=== PATIENT | female | born 1990 | race Caucasian/White ===

== ENCOUNTER → 2021-12-24 | Outpatient (CLI) | payer SELFPAY | END | disposition home or self-care (01) | LOC: LAB SHORT 15:02 | PROVIDERS: Nurse Practitioner Family | DX: Z12.72 Encounter for screening for malignant neoplasm of vagina (principal); Z87.42 Personal history of other diseases of the female genital tract | CPT/HCPCS: G0123 ==

== ENCOUNTER → 2022-09-18 | Outpatient (CLI) | payer BC | END | disposition home or self-care (01) | LOC: LAB SHORT 15:05 | DX: L72.11 Pilar cyst (principal) | CPT/HCPCS: 88304 ==

== ENCOUNTER → 2022-12-09 | Outpatient (CLI) | payer BC | END | disposition home or self-care (01) | LOC: LAB 16:33 → LAB SHORT 16:33 | DX: Z34.03 Encounter for supervision of normal first pregnancy, third trimester (principal) | CPT/HCPCS: 87081; 87150 ==

== ENCOUNTER 2022-12-25 15:45 | Inpatient (IN) | payer BC ==
[~2022-12-25] VITALS: Ht 172.7 cm; Wt 73.1 kg
[2022-12-25] MEDS ORDERED: PRENATAL TABLE1 EAC2 PO (17:09)
[2022-12-25] MEDS ORDERED: FAMO10 (17:10)
[2022-12-25 17:28] LABS: BASOPHILS ABSOLUTE AUTO 0.03 K/mm3 (0.00-0.23); BASOPHILS PERCENT AUTO 0 % (0-2); EOSINOPHILS ABSOLUTE AUTO 0.05 K/mm3 (0.00-0.68); EOSINOPHILS PERCENT AUTO 1 % (0-6); Hematocrit 37.4 % (33.0-51.0); IMMATURE GRAN ABSOLUTE AUTO 0.03 K/mm3 (0.00-0.10); IMMATURE GRAN PERCENT AUTO 0 % (0-1); LYMPHOCYTES ABSOLUTE AUTO 2.62 K/mm3 (0.84-5.20); LYMPHOCYTES PERCENT AUTO 24 % (21-46); MONOCYTES ABSOLUTE AUTO 0.75 K/mm3 (0.16-1.47); MONOCYTES PERCENT AUTO 7 % (4-13); Mean Corpuscular HGB 33.2 pg (26.0-34.0); Mean Corpuscular HGB Conc 34.8 g/dL (31.5-36.5); Mean Corpuscular Volume 96 fL (80-100); Mean Platelet Volume 10.5 fL (9.1-12.4); NEUTROPHILS ABSOLUTE AUTO 7.43 K/mm3 (1.96-9.15); NEUTROPHILS PERCENT AUTO 68 % (41-73); Platelet Count 214 K/mm3 (150-400); Red Blood Cell Count 3.91 M/mm3 (3.80-5.20); White Blood Cell Count 10.91 K/mm3 (4.00-11.30)
[2022-12-25 17:54] LABS: Albumin, Blood 2.8 g/dL (3.4-5.0); Albumin/Globulin Ratio 0.7 (0.8-1.8); Bilirubin, Total 0.4 mg/dL (0.1-1.0); Bun/Creatinine Ratio 15.2 (12.0-20.0); Calcium, Blood 8.8 mg/dL (8.5-10.1); Creatinine, Blood 0.72 mg/dL (0.40-1.00); Globulin, Blood 3.8 g/dL (2.2-4.0); Potassium, Blood 3.8 mmol/L (3.5-5.5); Total Protein, Blood 6.6 g/dL (6.4-8.2)
[2022-12-25 19:00] LABS: Creatinine, Urine Random 73.3 mg/dL (27.00-270.00); Protein, Urine Random 11.8 mg/dL (0.0-11.9); Protein/Creat Ratio, Ur Random 0.2
--- NOTE | 2022-12-25 21:06 | NUR ---
DISCHARGE SUMMARY: PT AND WALKED OUT OF UNIT. DECLINES ANY QUESTIONS OR CONCERNS AT THIS TIME. EDUCATED ON SIGNS AND SYMPTOMS OF INCREASED BLOOD PRESSURES. PT STATES SHE UDNERSTANDS SIGNS AND SYMPTOMS. AWARE OF PLANNED NST AND FOLLOW UP WITH DR NOLAN ON Friday12/27/22 WITH OFFICE TO CALL TOMORROW 12/26/22 TO SCHEDULE. ENCOURAGED TO CALL PROVIDER OR [facility] WITH ANY QUESTIONS OR CONCERNS.
== END 2022-12-25 21:15 | disposition home or self-care (01) | DRG 833 ==
LOC: BC 15:45 → OBS 15:45 → BC 16:36
PROVIDERS: Advanced Practice Midwife; ADMIT Obstetrics & Gynecology
DX: O47.1 False labor at or after 37 completed weeks of gestation (principal); O99.891 Other specified diseases and conditions complicating pregnancy; N89.8 Other specified noninflammatory disorders of vagina; Z3A.39 39 weeks gestation of pregnancy
CPT/HCPCS: 36415; 59025; 80053; 81003; 82570; 84156; 85025; 86850; 86900; 86901; A9270; J2210; J2590; J7120

== ENCOUNTER 2022-12-26 02:02 | Inpatient (IN) | payer BC ==
[~2022-12-26] VITALS: Ht 172.7 cm; Wt 72.0 kg
[~2022-12-26 02:02] MED LIST: FAMO10; PRENATAL TABLE1 EAC2 PO
--- NOTE | 2022-12-26 09:13 | NUR ---
REPORT RECEIVED FROM KILEY RN AT 0715 TO ASSUME CARE. PT OUTPT STATUS NEED TO BE CHANGED TO 23 HOUR OBS OR ADMIT. PROVIDER HAS BEEN NOTIFIED OF BP UPDATES AND NOTIFIED PT IS NO LONGER FEELING UC'S. PROVIDER CONCERNED DUE TO PT BEING ON THE BORDER OF QUALIFYING FOR GESTATIONAL HYPERTENSION. PROVIDER CALLED PT TO SPEAK TO HER REGARDING AUGMENTATION/INDUCTIONS VERSUS GOING HOME AND DOING A NST IN OFFICE TOMORROW. PROVIDER WILL COME IN AT [phone] TO MAKE FINAL DECISION. T/O TO NOT ADMIT PT AT THIS TIME FROM DR. NOLAN.
[2022-12-26 11:01] LABS: BASOPHILS ABSOLUTE AUTO 0.03 K/mm3 (0.00-0.23); BASOPHILS PERCENT AUTO 0 % (0-2); EOSINOPHILS ABSOLUTE AUTO 0.02 K/mm3 (0.00-0.68); EOSINOPHILS PERCENT AUTO 0 % (0-6); Hemoglobin 13.3 g/dL (11.5-16.0); IMMATURE GRAN ABSOLUTE AUTO 0.03 K/mm3 (0.00-0.10); IMMATURE GRAN PERCENT AUTO 0 % (0-1); LYMPHOCYTES ABSOLUTE AUTO 2.19 K/mm3 (0.84-5.20); LYMPHOCYTES PERCENT AUTO 21 % (21-46); MONOCYTES ABSOLUTE AUTO 0.61 K/mm3 (0.16-1.47); MONOCYTES PERCENT AUTO 6 % (4-13); Mean Corpuscular HGB 33.7 pg (26.0-34.0); Mean Corpuscular Volume 96 fL (80-100); Mean Platelet Volume 10.2 fL (9.1-12.4); NEUTROPHILS ABSOLUTE AUTO 7.48 K/mm3 (1.96-9.15); NEUTROPHILS PERCENT AUTO 72 % (41-73); Platelet Count 220 K/mm3 (150-400); RDW Coefficient Variation 13.1 % (11.7-14.2); RDW Standard Deviation 45.7 fL (35.1-46.3); Red Blood Cell Count 3.95 M/mm3 (3.80-5.20); White Blood Cell Count 10.36 K/mm3 (4.00-11.30)
[2022-12-26 16:30] LABS: Protein, Urine Random 9.3 mg/dL (0.0-11.9)
[2022-12-26 16:35] LABS: Creatinine, Urine Random 62.6 mg/dL (27.00-270.00); Protein/Creat Ratio, Ur Random 0.1
[2022-12-26 16:35] LABS: Albumin, Blood 2.9 g/dL (3.4-5.0); Albumin/Globulin Ratio 0.7 (0.8-1.8); Bilirubin, Total 0.5 mg/dL (0.1-1.0); Bun/Creatinine Ratio 13.4 (12.0-20.0); Calcium, Blood 8.6 mg/dL (8.5-10.1); Creatinine, Blood 0.75 mg/dL (0.40-1.00); Globulin, Blood 3.9 g/dL (2.2-4.0); Potassium, Blood 3.7 mmol/L (3.5-5.5); Total Protein, Blood 6.8 g/dL (6.4-8.2)
--- NOTE | 2022-12-27 08:22 | NUR ---
UP TO BATHROOM, UN ABLE TO VOID AT THIS TIME.
--- NOTE | 2022-12-27 20:20 | NUR ---
Patient asked for pain meds. notified nurse. no other needs at this time.
--- NOTE | 2022-12-28 10:22 | NUR ---
DISCHARGE INSTRUCTIONS, WRITTEN AND VERBAL, GIVEN TO PT AND . ANSWERED ALL QUESTIONS AND CONCERNS. FOLLOW UP APPOINTMENT SCHEDULED. IV DISCONTINUED. ALL PERSONAL BELONGINGS RETURNED. PT IS DISCHARGED HOME, DRIVEN BY .
== END 2022-12-28 11:30 | disposition home or self-care (01) | DRG 807 ==
LOC: BC 02:02 → OBS 02:02 → BC 10:27
PROVIDERS: ADMIT Obstetrics & Gynecology
PROC: 10E0XZZ Delivery of Products of Conception, External Approach (ICD-10-PCS; principal; 2022-12-27)
PROC: 0KQM0ZZ Repair Perineum Muscle, Open Approach (ICD-10-PCS; 2022-12-27)
PROC: 3E0R3BZ Introduction of Anesthetic Agent into Spinal Canal, Percutaneous Approach (ICD-10-PCS; 2022-12-27)
PROC: 00HU33Z Insertion of Infusion Device into Spinal Canal, Percutaneous Approach (ICD-10-PCS; 2022-12-27)
PROC: 10907ZC Drainage of Amniotic Fluid, Therapeutic from Products of Conception, Via Natural or Artificial Opening (ICD-10-PCS; 2022-12-27)
DX: O13.4 Gestational [pregnancy-induced] hypertension without significant proteinuria, complicating childbirth (principal); Z37.0 Single live birth; O76 Abnormality in fetal heart rate and rhythm complicating labor and delivery; O99.892 Other specified diseases and conditions complicating childbirth; R12 Heartburn; Z3A.39 39 weeks gestation of pregnancy; O70.1 Second degree perineal laceration during delivery; Z90.49 Acquired absence of other specified parts of digestive tract; Z98.890 Other specified postprocedural states; Z88.2 Allergy status to sulfonamides; Z88.8 Allergy status to other drugs, medicaments and biological substances; Z79.899 Other long term (current) drug therapy
CPT/HCPCS: 36415; 51702; 59025; 80053; 82570; 84156; 85025; 86850; 86900; 86901; A9270; J1885; J2270; J2550; J2590; J7120

== ENCOUNTER → 2023-02-12 | Outpatient (CLI) | payer BC ==
[2023-02-14 15:09] LABS: HPV 16 Negative (Negative); HPV 18 Negative (Negative); HPV OTHER HR TYPES Negative (Negative)
== END | disposition home or self-care (01) ==
LOC: LAB 11:29 → LAB SHORT 11:29
PROVIDERS: Obstetrics & Gynecology
DX: Z39.0 Encounter for care and examination of mother immediately after delivery (principal)
CPT/HCPCS: 87624; G0145

== ENCOUNTER → 2025-03-09 | Outpatient (CLI) | payer BC | END | disposition home or self-care (01) | LOC: LAB 16:08 → LAB SHORT 16:08 | DX: Z34.80 Encounter for supervision of other normal pregnancy, unspecified trimester (principal) | CPT/HCPCS: 87081; 87150 ==

== ENCOUNTER 2025-04-07 18:47 | Inpatient (IN) | payer BC ==
[~2025-04-07] VITALS: Ht 172.7 cm; Wt 72.7 kg
[2025-04-07] MEDS ORDERED: FentaNYL 2mcg/ml-Bup 0.1% Epd 250 ML EPI PRN (19:10)
[2025-04-07] MEDS ORDERED: Carboprost Tromethamine 250 MCG/ML 1ML Amp IM PRN (19:10)
[2025-04-07] MEDS ORDERED: Methylergonovine Maleate 0.2MG / ML 1ML Amp IM PRN (19:10)
[2025-04-07] MEDS ORDERED: Tranexamic Acid 100 ML IV SCH (19:10)
[2025-04-07] MEDS ORDERED: ePHEDrine Sulfate 50 MG/ML 1ML Injection XX PRN (19:10)
[2025-04-07] MEDS ORDERED: OXYTOCIN/RINGER'S LACTATE 500 ML IV PRN (19:10)
[2025-04-07] MEDS ORDERED: Oxytocin 10 Unit / ML Vial IM PRN (19:10)
[2025-04-07] MEDS ORDERED: OXYTOCIN/RINGER'S LACTATE 500 ML IV SCH ×3 (19:10→22:55)
[2025-04-07] MEDS ORDERED: Ondansetron HCl 2 MG / ML 2ML Vial IV PRN (19:20)
[2025-04-07 19:24] VITALS: BP 137/86
[2025-04-07] MEDS ORDERED: FentaNYL Citrate 50 MCG/ML 2 ML Injection IV PRN (19:25)
[2025-04-07 20:04] LABS: BASOPHILS ABSOLUTE AUTO 0.04 K/mm3 (0.00-0.23); BASOPHILS PERCENT AUTO 0 % (0-2); EOSINOPHILS ABSOLUTE AUTO 0.06 K/mm3 (0.00-0.68); EOSINOPHILS PERCENT AUTO 1 % (0-6); Hematocrit 34.3 % (33.0-51.0); Hemoglobin 11.9 g/dL (11.5-16.0); IMMATURE GRAN ABSOLUTE AUTO 0.03 K/mm3 (0.00-0.10); IMMATURE GRAN PERCENT AUTO 0 % (0-1); LYMPHOCYTES ABSOLUTE AUTO 3.16 K/mm3 (0.84-5.20); LYMPHOCYTES PERCENT AUTO 31 % (21-46); MONOCYTES ABSOLUTE AUTO 0.70 K/mm3 (0.16-1.47); MONOCYTES PERCENT AUTO 7 % (4-13); Mean Corpuscular HGB Conc 34.7 g/dL (31.5-36.5); Mean Corpuscular Volume 95 fL (80-100); NEUTROPHILS ABSOLUTE AUTO 6.31 K/mm3 (1.96-9.15); NEUTROPHILS PERCENT AUTO 61 % (41-73); NRBC ABSOLUTE 0.00 K/mm3 (0.00-0.02); NRBC Auto 0.0 /100 WBC (0.0-0.2); Platelet Count 216 K/mm3 (150-400); RDW Coefficient Variation 12.6 % (11.7-14.2); RDW Standard Deviation 43.4 fL (35.1-46.3)
[2025-04-07 20:20] LABS: Alanine Aminotransfer (ALT/SGP 16.0 U/L (12-78); Albumin, Blood 2.9 g/dL (3.4-5.0); Albumin/Globulin Ratio 0.8 (0.8-1.8); Anion Gap 10.0 mmol/L (3-11); Aspartate Aminotrans (AST/SGOT 17.0 U/L (12-37); Bilirubin, Total 0.4 mg/dL (0.1-1.0); Blood Urea Nitrogen 8.0 mg/dL (8-24); CO2, Blood 22.0 mmol/L (21-32); Calcium, Blood 8.3 mg/dL (8.5-10.1); Chloride, Blood 108.0 mmol/L (98-108); Creatinine, Blood 0.72 mg/dL (0.40-1.00); Globulin, Blood 3.8 g/dL (2.2-4.0); Glucose, Blood 83.0 mg/dL (70-99); Potassium, Blood 3.8 mmol/L (3.5-5.5); Sodium, Blood 136.0 mmol/L (136-145); Total Protein, Blood 6.7 g/dL (6.4-8.2)
[2025-04-07 21:02] VITALS: BP 130/80
[2025-04-07 22:29] VITALS: BP 131/78
[2025-04-08] VITALS (38 sets, daily range): BP systolic 120–203; BP diastolic 58–94
[2025-04-08] MEDS ORDERED: OXYTOCIN/RINGER'S LACTATE 500 ML IV SCH ×2 (05:20→20:15)
[2025-04-08 19:27] LABS: PCO2 Cord - Venous 50.9 mmHg (40-50); PO2 Cord - Venous 22.6 mmHg (28-32); pH Umbilical Cord - Venous 7.32 (7.26-7.35)
[2025-04-08] MEDS ORDERED: Ketorolac Tromethamine 30mg Vial IV PRN (20:10)
[2025-04-08] MEDS ORDERED: Carboprost Tromethamine 250 MCG/ML 1ML Amp IM PRN (20:10)
[2025-04-08] MEDS ORDERED: Witch Hazel/Glycerin PADS TOP PRN (20:10)
[2025-04-08] MEDS ORDERED: Benzocaine Topical Anesthetic Spray 60GM TOP PRN (20:15)
[2025-04-09 04:47] VITALS: BP 143/73
[2025-04-09 05:03] VITALS: BP 131/68
[2025-04-09 08:00] VITALS: BP 127/78
[2025-04-09] MEDS ORDERED: Prenatal Vit/FE Fumarate/FA 1 Tab PO SCH (09:00)
[2025-04-09] MEDS ORDERED: IBUP800 PO (14:03)
[2025-04-09 14:11] VITALS: BP 134/87
--- NOTE | 2025-04-09 15:22 | NUR ---
REPORT TO TRENT CAVANAUGH
[2025-04-09 17:33] VITALS: BP 140/82
[2025-04-09 19:48] VITALS: BP 137/87
== END 2025-04-09 21:20 | disposition home or self-care (01) | DRG 807 ==
LOC: OBS 18:47 → BC 18:51 → OBS 18:56 → BC 18:58
PROVIDERS: ADMIT Obstetrics & Gynecology
PROC: 0U7C7DJ Dilation of Cervix with Intraluminal Device, Temporary, Via Natural or Artificial Opening (ICD-10-PCS; 2025-04-07)
PROC: 4A1HXCZ Monitoring of Products of Conception, Cardiac Rate, External Approach (ICD-10-PCS; 2025-04-07)
PROC: 10D07Z6 Extraction of Products of Conception, Vacuum, Via Natural or Artificial Opening (ICD-10-PCS; principal; 2025-04-08)
PROC: 0KQM0ZZ Repair Perineum Muscle, Open Approach (ICD-10-PCS; 2025-04-08)
PROC: 10907ZC Drainage of Amniotic Fluid, Therapeutic from Products of Conception, Via Natural or Artificial Opening (ICD-10-PCS; 2025-04-08)
PROC: 3E033VJ Introduction of Other Hormone into Peripheral Vein, Percutaneous Approach (ICD-10-PCS; 2025-04-08)
DX: O13.4 Gestational [pregnancy-induced] hypertension without significant proteinuria, complicating childbirth (principal); O99.413 Diseases of the circulatory system complicating pregnancy, third trimester; Z37.0 Single live birth; Z3A.40 40 weeks gestation of pregnancy; O48.0 Post-term pregnancy; Z88.2 Allergy status to sulfonamides; Z88.1 Allergy status to other antibiotic agents; O76 Abnormality in fetal heart rate and rhythm complicating labor and delivery; O70.1 Second degree perineal laceration during delivery; R03.0 Elevated blood-pressure reading, without diagnosis of hypertension
CPT/HCPCS: 36415; 51702; 59025; 59200; 80053; 82570; 82803; 84156; 85025; 86850; 86900; 86901; 99214; A9270; J1885; J2590; J3010; J7120